=== PATIENT | male | born 1945 | race Caucasian/White ===

== ENCOUNTER 2021-03-15 21:45 | Inpatient (IN) | payer OTHER, SELFPAY ==
[~2021-03-15] VITALS: Ht 177.8 cm; Wt 72.6 kg
[~2021-03-15 21:45] MED LIST: ARIP5TAB8 PO; CLON0.5T PO; LEVO0.155 PO; MIRT-91 PO; OMEP40EC24 PO; SERT100T PO; TRAZ-343 PO
[2021-03-15 22:19] VITALS: BP 150/69
--- NOTE | 2021-03-15 22:19 | NUR ---
PT PATTY ALS. TAKEN TO BED 6
--- NOTE | 2021-03-15 22:20 | NUR ---
75 Y/O MALE BIBA C/O DIFF BREATHING W/ INCREASED EFFORT X2 WKS. PT PRESENTS W/ TACHYCARDIA AND TACHYPNEA. PT STATES HE HAD FEVER, SOB, AND COUGH. PT IS PALE AND ANXIOUS. PT'S LUNGS ARE CLEAR, HR REGULAR; AAOX4 WITH EVEN AND STEADY GAIT; PATIENT STATES NO PAIN AT THIS TIME; PATIENT POSITIONED FOR COMFORT; HOB ELEVATED; BEDRAILS UP X2; BED DOWN. ER MD MADE AWARE OF PT STATUS. HX PER PT: RENAL FAILURE AND KIDNEY TRANSPLANT NKA
[2021-03-15] MEDS ORDERED: DEXAMETHASONE 4 MG/ML VIAL IVP ONE (22:40)
[2021-03-15] MEDS ORDERED: ALBUTEROL SULFATE/IPRATROPIU 3 ML SOL IH ONE (22:40)
--- NOTE | 2021-03-15 22:45 | NUR ---
COVID/ELAINE, FLU, AND COVID-NOVEL SWABBED AND WALKED TO LABS
--- NOTE | 2021-03-15 22:48 | NUR ---
X-Ray at bedside.
[2021-03-15] MEDS ORDERED: cefTRIAXone 1,000 MG VIAL ONE (22:51)
[2021-03-15 22:58] LABS: EOSINOPHILS % (AUTO) 0.1 % (0.0-4.0); HEMATOCRIT 35.1 % (36-52); HEMOGLOBIN 11.9 g/dL (12.0-18.0); LYMPHOCYTES # (AUTO) 0.2 K/uL (2.0-11.5); LYMPHOCYTES % (AUTO) 4.5 % (20.5-51.1); MEAN CORPUSCULAR HEMOGLOBIN 31 pg (27-31); MEAN CORPUSCULAR HGB CONC 34 g/dL (33-37); MEAN CORPUSCULAR VOLUME 91.1 fL (80-94); MONOCYTES # (AUTO) 0.5 K/uL (0.8-1.0); MONOCYTES % (AUTO) 10.6 % (1.7-9.3); NEUTROPHILS # (AUTO) 3.7 K/uL (1.8-7.7); PLATELET COUNT (AUTO) 178 K/uL (140-450); RED BLOOD CELL COUNT(AUTO) 3.86 MIL/uL (4.20-6.10); RED CELL DISTRIBUTION WIDTH 14.4 % (11.6-13.7); WHITE BLOOD COUNT (AUTO) 4.5 K/uL (4.8-10.8)
--- NOTE | 2021-03-15 23:00 | NUR ---
Respiratory Therapist at bedside for respiratory intervention.
--- NOTE | 2021-03-15 23:04 | NUR ---
PT PLACED ON BIPAP PER RT
--- NOTE | 2021-03-15 23:07 | NUR ---
Dr. Arcos examining patient.
[2021-03-15] MEDS ORDERED: ONDANSETRON 4 MG/2 ML VIAL IVP ONE (23:15)
[2021-03-15 23:27] LABS: NEUTROPHILS % (AUTO) 83.8 % (42.2-75.2)
[2021-03-15 23:41] LABS: ALBUMIN 3.5 g/dL (3.4-5.0); ANION GAP 17.2 (8-16); ASPARTATE AMINOTRANSFERASE 38 U/L (15-37); CARBON DIOXIDE 20.1 mmol/L (21-32); CHLORIDE 97 mmol/L (98-107); CREATININE 1.5 mg/dL (0.6-1.3); GLUCOSE 103 mg/dL (74-106); POTASSIUM 4.3 mmol/L (3.5-5.1); SODIUM SERUM 130 mmol/L (136-145); TOTAL BILIRUBIN 0.8 mg/dL (0.0-1.0); UREA NITROGEN, BLOOD 22 mg/dL (7-18)
[2021-03-15 23:52] LABS: C-REACTIVE PROTEIN QUANT 6.2 mg/dL (0.0-0.9)
[2021-03-16] MEDS ORDERED: MIRT-91 PO (00:41)
[2021-03-16] MEDS ORDERED: OMEP20EC11 PO (00:41)
[2021-03-16] MEDS ORDERED: IMO2 PO (00:41)
[2021-03-16] MEDS ORDERED: CHOL100013 PO (00:41)
[2021-03-16] MEDS ORDERED: SERT100T PO (00:41)
[2021-03-16] MEDS ORDERED: TRAZ-343 PO (00:41)
[2021-03-16] MEDS ORDERED: LEVO0.1331 PO (00:41)
[2021-03-16] MEDS ORDERED: ASPI-1856 PO (00:41)
[2021-03-16] MEDS ORDERED: PRED5TAB7 PO (00:41)
[2021-03-16] MEDS ORDERED: TACR1CAP17 PO (00:41)
[2021-03-16] MEDS ORDERED: [UNRECOGNIZED DRUG - CODE] PO (00:50)
[2021-03-16] MEDS ORDERED: CEL250 PO (00:50)
[2021-03-16] MEDS ORDERED: MULT-2253 PO (00:50)
[2021-03-16] MEDS ORDERED: NIAC500T6 PO (00:50)
[2021-03-16] MEDS ORDERED: DOXY-690 PO (00:50)
[2021-03-16] MEDS ORDERED: SILD100T PO (00:50)
[2021-03-16] MEDS ORDERED: PRAZ1CAP5 PO (00:50)
[2021-03-16] MEDS ORDERED: DOCU-299 PO (00:50)
[2021-03-16 01:37] VITALS: BP 141/59
--- NOTE | 2021-03-16 01:42 | NUR ---
Jess lynn in ED - 03/16/21 at 0249 by [email or web address] ER MD AND PSYCH BOTH DO NOT FEEL COMFORTABLE DISCHARTGING THE PATIENT DUE TO A LACK OF SUPPORT SYSTEM. PT WILL REMAIN IN THE ER UNTIL PSYCH CAN COME IN THE MORNING TO REEVALUATE THE PT.
--- NOTE | 2021-03-16 03:36 | NUR ---
RTs AT BEDSIDE TO ADJUST BIPAP SETTINGS TO [facility]
[2021-03-16 03:49] VITALS: BP 139/46
--- NOTE | 2021-03-16 04:12 | NUR ---
DAUGHTER OF PT CALLED FOR UPDATE. ALL QUESTIONS AND CONCERNS WERE ADDRESSED. POC: SGJose A NARANJO (DAUGHTER) CELL- WORK-
[2021-03-16] MEDS ORDERED: AZITHROMYCIN 500 MG in DEXTROSE 5% 250 ML IV SCH (04:40)
[2021-03-16] MEDS ORDERED: NACL 0.9% 500 ML IV ONE (04:40)
[2021-03-16] MEDS ORDERED: AZITHROMYCIN 500 MG INJ VIAL IV ONE (05:12)
--- NOTE | 2021-03-16 05:53 | NUR ---
PT WAS COMPLAINING THAT HIS IV SITE WAS HURTING WHILE INFUSING MEDICATION. A NEW IV SITE WAS ESTABLISHED FURTHER UP HIS RIGHT ARM DUE TO FISTULA ON LEFT ARM. PT IS NO LONGER COMPLAINING OF PAIN.
--- NOTE | 2021-03-16 05:57 | NUR ---
RT AT BEDSIDE EVALUATING PT. PT IS AT 90% OFF BIPAP. PT WILL REMAIN ON BIPAP FOR NOW.
--- NOTE | 2021-03-16 07:25 | NUR ---
REPORT GIVEN TO SERA JOHNSON
[2021-03-16] MEDS ORDERED: ONDANSETRON 4 MG/2 ML VIAL IM/IVP PRN (08:10)
[2021-03-16] MEDS ORDERED: DOCUSATE SODIUM 100 MG GELCAP PO PRN (08:10)
[2021-03-16] MEDS ORDERED: ACETAMINOPHEN 325 MG TAB PO PRN (08:10)
[2021-03-16] MEDS ORDERED: POTASSIUM CHLORIDE 10 MEQ TABER PO PRN (08:10)
[2021-03-16] MEDS ORDERED: guaiFENesin DM 200/20 MG-10 ML 10 ML UDC PO PRN (08:10)
--- NOTE | 2021-03-16 08:10 | NUR ---
RT AT BEDSIDE.
[2021-03-16] MEDS ORDERED: ALBUTEROL SULFATE/IPRATROPIU 3 ML SOL IH PRN (08:15)
[2021-03-16] MEDS: PANTOPRAZOLE 40 MG TABEC PO SCH (09:33)
[2021-03-16] MEDS: ZINC SULF 220 MG CAP PO SCH (09:34)
[2021-03-16] MEDS: ASCORBIC ACID 500 MG TAB PO SCH (09:34)
[2021-03-16 10:35] LABS: PROTHROMBIN TIME 10.5 secs (10.8-13.4)
[2021-03-16 10:52] LABS: CHOL/HDL RATIO 3.2 (1-4.5); FREE T4 (FREE THYROXINE) 1.07 ng/dL (0.76-1.46); MAGNESIUM 1.2 mg/dL (1.8-2.4); PHOSPHORUS 4.1 mg/dL (2.5-4.9); THYROID STIMULATING HORMONE 0.09 uIU/mL (0.34-3.74)
--- NOTE | 2021-03-16 10:54 | NUR ---
PATIENT HAS BEEN SCREENED AND CATEGORIZED MODERATE NUTRITION RISK. PATIENT WILL BE SEEN WITHIN 3-5 DAYS OF ADMISSION. 03/19/21 03/21/[address]
--- NOTE | 2021-03-16 11:35 | NUR ---
800 ML URINE EMPTED.
--- NOTE | 2021-03-16 13:20 | NUR ---
PT HAD 2 LOOSE STOOLS. PT CLANED.
--- NOTE | 2021-03-16 13:53 | NUR ---
RT AT BEDSIDE.
[2021-03-16] MEDS: ALBUTEROL SULFATE/IPRATROPIU 3 ML SOL IH SCH (13:55)
--- NOTE | 2021-03-16 15:13 | NUR ---
MOVED TO ER BED 2
[2021-03-16] MEDS ORDERED: remdesivir COMMUNICATION ORDER 1 EA MISC MC PRN (15:55)
--- NOTE | 2021-03-16 19:14 | NUR ---
received report from Gurmeet JOHNSON for continuation of care.
--- NOTE | 2021-03-16 19:14 | NUR ---
GAVE REPORT OT KENZIE MEJIA.
--- NOTE | 2021-03-16 20:01 | NUR ---
Provided pericare for patient, changed diaper and offered paloma pads. patient tolerated well. 10cc flushable through right fa. no medications running through arm. patient on 5L nc. AAOx4. VSS. No signs of distress noted. Safety measures are in place, placed on the monitors, and will continue to monitor patient.
[2021-03-16] MEDS: HYDROcodone/APAP 7.5/325 MG 1 TAB PO PRN (20:18)
--- NOTE | 2021-03-16 21:41 | NUR ---
spoke with Shirley the daughter about patient condition and updates on patient. Addendum: 03/16/21 at 2146 by LUZ ni underwood #[id number]
--- NOTE | 2021-03-16 21:56 | NUR ---
Provided pericare for patient, changed diaper and offered paloma pads. patient tolerated well. patient on 5L nc. AAOx4. VSS. No signs of distress noted. Safety measures are in place, placed on the monitors, and will continue to monitor patient.
[2021-03-17] MEDS: ALBUTEROL SULFATE/IPRATROPIU 3 ML SOL IH SCH ×4 (01:00→19:50)
--- NOTE | 2021-03-17 02:20 | NUR ---
Patient appears to be resting comfortably in bed- semi fowlers, and eyes closed. Vital Signs within normal limits. Respirations even and unlabored. No signs of distress noted. Safety measures in place, attached to monitor and will continue to monitor patient.
--- NOTE | 2021-03-17 02:45 | NUR ---
Tx NOT GIVEN DUE TO COVID PROTOCOL
--- NOTE | 2021-03-17 06:22 | NUR ---
patient awake and requesting another blanket and urinal. Addendum: 03/17/21 at 0281 by [email or web address] urinal provided for patient
--- NOTE | 2021-03-17 07:16 | NUR ---
repositioned patient to the left side- tolerated well.
[2021-03-17 07:17] LABS: BASOPHILS % (AUTO) 0.2 % (0.0-2.0); EOSINOPHILS % (AUTO) 0.1 % (0.0-4.0); HEMATOCRIT 35.5 % (36-52); LYMPHOCYTES # (AUTO) 0.4 K/uL (2.0-11.5); LYMPHOCYTES % (AUTO) 10.3 % (20.5-51.1); MEAN CORPUSCULAR HEMOGLOBIN 31 pg (27-31); MEAN CORPUSCULAR HGB CONC 34 g/dL (33-37); MEAN CORPUSCULAR VOLUME 90.5 fL (80-94); MONOCYTES # (AUTO) 0.5 K/uL (0.8-1.0); MONOCYTES % (AUTO) 11.8 % (1.7-9.3); NEUTROPHILS # (AUTO) 3.4 K/uL (1.8-7.7); NEUTROPHILS % (AUTO) 77.6 % (42.2-75.2); PLATELET COUNT (AUTO) 148 K/uL (140-450); RED BLOOD CELL COUNT(AUTO) 3.92 MIL/uL (4.20-6.10); RED CELL DISTRIBUTION WIDTH 14.8 % (11.6-13.7); WHITE BLOOD COUNT (AUTO) 4.4 K/uL (4.8-10.8)
--- NOTE | 2021-03-17 07:45 | NUR ---
Patient appears to be resting comfortably in bed. Vital Signs within normal limits. Respirations even and unlabored. A/V shunt with +B/T. IV WNL, SL. All needs met, safety measures in place. Call light in reach. VSS. Able to make all needs known.
[2021-03-17 08:02] LABS: ANION GAP 16.3 (8-16); CARBON DIOXIDE 22.3 mmol/L (21-32); CHLORIDE 106 mmol/L (98-107); CREATININE 1.5 mg/dL (0.6-1.3); GLUCOSE 103 mg/dL (74-106); POTASSIUM 4.6 mmol/L (3.5-5.1); SODIUM SERUM 140 mmol/L (136-145); UREA NITROGEN, BLOOD 31 mg/dL (7-18)
[2021-03-17] MEDS: ASCORBIC ACID 500 MG TAB PO SCH (09:00)
[2021-03-17] MEDS: ZINC SULF 220 MG CAP PO SCH (09:00)
[2021-03-17] MEDS: PANTOPRAZOLE 40 MG TABEC PO SCH (09:00)
[2021-03-17] MEDS ORDERED: AZITHROMYCIN 250 MG TAB PO SCH (09:00)
[2021-03-17 09:07] LABS: T4 (THYROXINE) 7.9 ug/dL (4.5-12.0)
--- NOTE | 2021-03-17 09:21 | NUR ---
Patient will be admitted to care of Dr Paez. Admited to Telemetry. Will go to room 126 A. [facility] list completed. Report to Leif MEJIA. Addendum: 03/17/21 at 1015 by [facility] Cell phone and hearing aid visually endorsed to Leif MEJIA at bedside
[2021-03-17 09:30] VITALS: BP 149/79
[2021-03-17] MEDS: HYDROcodone/APAP 7.5/325 MG 1 TAB PO PRN (11:02)
[2021-03-17 12:00] VITALS: BP 153/83
--- NOTE | 2021-03-17 13:33 | NUR ---
SATURATION 96% ON SUPPLEMENTAL OXYGEN AT 4 LPM VIA NC POST HHN THERAPY TITRATED FIO2 TO 3 LPM POST HHNN THERAPY XIOMARA/RN NOTIFIED
--- NOTE | 2021-03-17 13:43 | NUR ---
TOLERATED INCENTIVE SPIROMETRY (IS) WELL WITHOUT ADVERSE REACTIONS NOTED ENCOURAGED PATIENT TO USE IS EVERY 1-2 HOURS WHILE AWAKE
[2021-03-17] MEDS ORDERED: LOPERAMIDE 2 MG CAP PO PRN (13:55)
[2021-03-17] MEDS: predniSONE 5 MG TAB PO SCH (14:54)
--- NOTE | 2021-03-17 15:50 | NUR ---
DC PLANNIN YRS OLD MALE PATIENT WAS ADMITTED FROM HOME WITH A DX OF ACUTE HYPOXIA RESP FAILURE DUE TO COVID. PATIENT HAS A HX OF ESRD ON HEMODIALYSIS HYPOTHYROIDISM AND BIPOLAR DISORDER. CXR SHOWED BRONCHITIS. RAPID COVID TEST POSITIVE. ON O2 4L/NC SATING 96%. CONSULTED WITH CARDIO, NEPHRO AND PULMO. DC PLAN TO GO HOME WHEN STABLE. CM TO FOLLOW Addendum: 03/19/21 at 1412 by Ariana Arzate RN DC PLANNING: PATIENT HAS AN ORDER FOR HOME O2 FAXED TO [facility]. DR MONDRAGON SIGNED THE FORM. HOME O2 WILL BE DELIVERED TO THE HOSPITAL BETWEEN 4-7 PM
[2021-03-17 16:00] VITALS: BP 146/63
[2021-03-17] MEDS ORDERED: TACROLIMUS 1 MG PO SCH (17:00)
[2021-03-17] MEDS: MYCOPHENOLATE 250 MG CAP PO SCH (17:38)
[2021-03-17] MEDS: TACROLIMUS 1 MG CAP PO SCH ×2 (17:38→21:29)
[2021-03-17] MEDS: clonazePAM 0.5 MG TAB PO SCH (17:39)
--- NOTE | 2021-03-17 19:25 | NUR ---
RECEIVED PATIENT REPORT FROM AM SHIFT NURSE. PATIENT IN BED RESTING COMFORTABLY AT THIS TIME. HOB IN SEMI-FOWLERS POSITION. ON 3L VIA N/C. NOT IN DISTRESS. NO COMPLAINT OF PAIN AT THIS TIME. ALL SAFETY MEASURES IN PLACE. CALL LIGHT WITHIN REACH. WILL CONTINUE WITH THE CURRENT PLAN OF CARE.
--- NOTE | 2021-03-17 19:26 | NUR ---
ENDORSED PT TO GANG TAILER NURSE FOR CONTINUITY OF CARE.
[2021-03-17 20:00] VITALS: BP 147/62
[2021-03-17] MEDS: PRAZOSIN 1 MG CAP PO SCH (21:00)
--- NOTE | 2021-03-17 21:05 | NUR ---
ADMINISTERED SCHEDULE MEDICATIONS PER MD ORDER. TOLERATED WELL. NO ASE NOTED. ALL SAFETY MEASURES IN PLACE. CALL LIGHT WITHIN REACH. WILL CONTINUE TO MONITOR.
[2021-03-17] MEDS: ARIPiprazole 10 MG TAB PO SCH (21:27)
[2021-03-17] MEDS: traZODone 50 MG TAB PO SCH (21:28)
[2021-03-17] MEDS: MIRTAZAPINE 15 MG TAB PO SCH (21:30)
--- NOTE | 2021-03-17 23:07 | NUR ---
CHECKED ON PATIENT. PATIENT ASLEEP WITH HOB SLIGHTLY ELEVATED. BREATHING EVEN AND UNLABORED WITH NO SOB NOTED. ALL SAFETY MEASURES IN PLACE. CALL LIGHT WITHIN REACH. WILL CONTINUE TO MONITOR.
[2021-03-18] VITALS: BP 141/66
[2021-03-18] MEDS: ZOLPIDEM 5 MG TAB PO PRN ×2 (00:58→22:03)
[2021-03-18] MEDS: ALBUTEROL SULFATE/IPRATROPIU 3 ML SOL IH SCH ×4 (01:00→21:30)
--- NOTE | 2021-03-18 01:02 | NUR ---
CHECKED ON PATIENT. PATIENT REQUESTING FOR SLEEPING MEDICATION. MEDICATION PROVIDED. CALL LIGHT WITHIN REACH. WILL CONTINUE TO MONITOR.
--- NOTE | 2021-03-18 01:26 | NUR ---
PATIENT IS ASLEEP. NO HHNTX GIVEN. PATIENT HAS CLEAR BS
--- NOTE | 2021-03-18 03:15 | NUR ---
CHECKED ON PATIENT. SLEEPING WELL WITH VISIBLE CHEST RISING AND FALLING. CALL LIGHT WITHIN REACH. WILL CONTINUE TO MONITOR.
[2021-03-18 04:00] VITALS: BP 137/60
--- NOTE | 2021-03-18 05:04 | NUR ---
ROUNDED ON PATIENT. SLEEPING WELL WITH VISIBLE CHEST RISING AND FALLING. CALL LIGHT WITHIN REACH. WILL CONTINUE TO MONITOR.
[2021-03-18] MEDS ORDERED: LEVOTHYROXINE 0.025 MG TAB ONE (05:43)
[2021-03-18] MEDS ORDERED: LEVOTHYROXINE 0.112 MG TAB ONE (05:43)
[2021-03-18] MEDS ORDERED: NON-FORMULARY ITEM (Levothyroxine Sodium* (Synthroid*) 0.137 MG) PO SCH (06:30)
[2021-03-18] MEDS: LEVOTHYROXINE 0.025 MG, LEVOTHYROXINE 0.112 MG PO SCH ×2 (06:42)
[2021-03-18 06:54] LABS: BASOPHILS % (AUTO) 0.1 % (0.0-2.0); HEMATOCRIT 30.7 % (36-52); HEMOGLOBIN 10.5 g/dL (12.0-18.0); LYMPHOCYTES # (AUTO) 0.2 K/uL (2.0-11.5); MEAN CORPUSCULAR HEMOGLOBIN 31 pg (27-31); MEAN CORPUSCULAR HGB CONC 34 g/dL (33-37); MEAN CORPUSCULAR VOLUME 90.4 fL (80-94); MONOCYTES # (AUTO) 0.5 K/uL (0.8-1.0); MONOCYTES % (AUTO) 8.7 % (1.7-9.3); NEUTROPHILS % (AUTO) 87.2 % (42.2-75.2); PLATELET COUNT (AUTO) 148 K/uL (140-450); RED CELL DISTRIBUTION WIDTH 14.7 % (11.6-13.7); WHITE BLOOD COUNT (AUTO) 5.7 K/uL (4.8-10.8)
[2021-03-18 07:14] LABS: ANION GAP 15.2 (8-16); CARBON DIOXIDE 20.8 mmol/L (21-32); CHLORIDE 102 mmol/L (98-107); CREATININE 1.9 mg/dL (0.6-1.3); GLUCOSE 115 mg/dL (74-106); SODIUM SERUM 134 mmol/L (136-145); UREA NITROGEN, BLOOD 44 mg/dL (7-18)
--- NOTE | 2021-03-18 07:20 | NUR ---
ENDORSED PATIENT REPORT TO AM SHIFT NURSE FOR CONTINUITY OF CARE. PATIENT IS STABLE.
--- NOTE | 2021-03-18 07:21 | NUR ---
RECEIVED BEDSIDE REPORT FROM STENCIL MACHINE OPERATOR PT IS AWAKE, SATING 93% ON 3L OF O2 NC. NO S/S OF DISTRESS. BREATHING IS EVEN AND UNLABORED. IV SL AND INTACT. ALL SAFETY MEASURES IN PLACE. CALL LIGHT WITHIN REACH. SKIN INTACT. PT IS STABLE.
[2021-03-18 08:00] VITALS: BP 115/65
[2021-03-18] MEDS: ECOTRIN 81 MG TABEC PO SCH (09:43)
[2021-03-18] MEDS: PANTOPRAZOLE 40 MG TABEC PO SCH (09:44)
[2021-03-18] MEDS: TACROLIMUS 1 MG CAP PO SCH ×4 (09:44→20:18)
[2021-03-18] MEDS: ASCORBIC ACID 500 MG TAB PO SCH (09:44)
[2021-03-18] MEDS: SERTRALINE 50 MG TAB PO SCH (09:44)
[2021-03-18] MEDS: predniSONE 5 MG TAB PO SCH (09:44)
[2021-03-18] MEDS: MYCOPHENOLATE 250 MG CAP PO SCH ×3 (09:44→17:11)
[2021-03-18] MEDS: ZINC SULF 220 MG CAP PO SCH (09:44)
[2021-03-18] MEDS: clonazePAM 0.5 MG TAB PO SCH ×3 (09:45→17:14)
--- NOTE | 2021-03-18 10:00 | NUR ---
PT IS AWAKE, NO S/S OF DISTRESS. SATING 94% ON 3L OF 02 NC. BREATHING IS EVEN AND UNLABORED. IVF IV SL. ALL SAFETY MEASURES IN PLACE. CALL LIGHT WITHIN REACH. SKIN INTACT. PT IS STABLE.
[2021-03-18] MEDS: HYDROcodone/APAP 7.5/325 MG 1 TAB PO PRN (11:09)
[2021-03-18 12:00] VITALS: BP 94/54
--- NOTE | 2021-03-18 12:00 | NUR ---
PAIN MED GIVEN AROUND 1109, REASSESSED AND PAIN WENT FROM 6 TO 2. LELE MED EFFECTIVE.
--- NOTE | 2021-03-18 14:00 | NUR ---
PT RESTING, NO S/S OF DISTRESS. NC AT 3L. BREATHING IS EVEN AND UNLABORED. IV SL. ALL SAFETY MEASURES IN PLACE. CALL LIGHT WITHIN REACH. SKIN INTACT. PT IS STABLE.
--- NOTE | 2021-03-18 15:42 | NUR ---
HHN THERAPY NOT GIVEN DUE TO PHYSICAL THERAPY AND NAUSEA WITH EMESIS DURING THERAPY
[2021-03-18 16:00] VITALS: BP 112/53
--- NOTE | 2021-03-18 17:00 | NUR ---
PT BREATHING IS EVEN AND UNLABORED ON 3L OF O2 NC. PT IS STABLE.
--- NOTE | 2021-03-18 19:10 | NUR ---
ENDORSED TO STATUS CONTROLLER NURSE FOR CONTINUITY OF CARE. POC DISCUSSED.
--- NOTE | 2021-03-18 19:15 | NUR ---
RECEIVED BEDSIDE REPORT FROM DAY SHIFT PT IS AWAKE,ALERT AND ORIENTED. SATING 93% ON 3L OF O2 VIA NC. NO S/S OF DISTRESS. BREATHING IS EVEN AND UNLABORED. IV 18G ON RFA SL AND 20G ON RAC INTACT. ALL SAFETY MEASURES IN PLACE. CALL LIGHT WITHIN REACH. SKIN INTACT. PT IS STABLE.
[2021-03-18 20:00] VITALS: BP 120/67
[2021-03-18] MEDS: ARIPiprazole 10 MG TAB PO SCH (20:16)
[2021-03-18] MEDS: traZODone 50 MG TAB PO SCH (20:17)
[2021-03-18] MEDS: MIRTAZAPINE 15 MG TAB PO SCH (20:22)
[2021-03-18] MEDS: PRAZOSIN 1 MG CAP PO SCH (21:00)
--- NOTE | 2021-03-18 21:00 | NUR ---
DUE MEDICATIONS GIVEN. PT TOLERATED WELL. NO DISTRESS NOTED. ALL PRECAUTIONS IN PLACE. WILL CONTINUE TO MONITOR.
--- NOTE | 2021-03-18 21:30 | NUR ---
PT PRESENTS LAYING IN BED ALERT AND WAKE WITH NO SIGNS OF RESPIRATORY DISTRESS. CURRENTLY ON 3LPM NC SATING 90% BS CLEAR/ DIMINISHED BILATERALLY. TOLERATED HHN TX WELL. WILL CONTINUE TO MONITOR.
--- NOTE | 2021-03-18 22:15 | NUR ---
PT WANTED SLEEP MEDICATION. PRN SLEEP MED GIVEN. PT TOLERATED WELL. NO DISTRESS NOTED. CALL LIGHT WITHIN REACH. WILL CONTINUE TO MONITOR.
--- NOTE | 2021-03-18 23:30 | NUR ---
PT ASLEEP. BREATHING EQUAL AND UNLABORED. ALL PRECAUTIONS IN PLACE. WILL CONTINUE TO MONITOR.
[2021-03-18] MEDS: DOCUSATE SODIUM 100 MG GELCAP PO SCH (23:41)
[2021-03-19] VITALS: BP 145/62
--- NOTE | 2021-03-19 01:51 | NUR ---
PT ASLEEP. BREATHING EQUAL AND UNLABORED. ALL PRECAUTIONS IN PLACE. CALL LIGHT WITHIN REACH.WILL CONTINUE TO MONITOR.
[2021-03-19] MEDS ORDERED: HYDRAGUARD CREAM TP SCH (02:00)
[2021-03-19] MEDS ORDERED: HYDRAGUARD CREAM TP PRN (02:30)
[2021-03-19 04:00] VITALS: BP 158/51
[2021-03-19] MEDS ORDERED: LEVOTHYROXINE 0.025 MG TAB ONE (05:55)
--- NOTE | 2021-03-19 06:00 | NUR ---
SCHEDULED MEDICATION GIVEN. PT TOLERATED WELL. NO DISTRESS NOTED. CALL LIGHT WITHIN REACH. WILL CONTINUE TO MONITOR.
[2021-03-19] MEDS: LEVOTHYROXINE 0.025 MG, LEVOTHYROXINE 0.112 MG PO SCH ×2 (06:10)
--- NOTE | 2021-03-19 06:23 | NUR ---
PT IS STABLE.NO ACUTE EVENTS THROUGHOUT THE NIGHT. ALL NEEDS ATTENDED. NO S/SX OF DISTRESS. ALL PRECAUTIONS IN PLACE.CALL LIGHT WITHIN REACH. WILL ENDORSE TO AM SHIFT NURSE.
--- NOTE | 2021-03-19 07:27 | NUR ---
ENDORSED PT TO AM SHIFT NURSE FOR CONTINUITY OF CARE. PT IS STABLE.
--- NOTE | 2021-03-19 07:28 | NUR ---
RECEIVED BEDSIDE REPORT FROM RAILCAR BRAKE OPERATOR PT IS AWAKE, SATING 90% ON 3L OF O2 NC. NO S/S OF DISTRESS. BREATHING IS EVEN AND UNLABORED. IV SL AND INTACT. ALL SAFETY MEASURES IN PLACE. CALL LIGHT WITHIN REACH. SKIN INTACT. PT IS STABLE.
--- NOTE | 2021-03-19 07:34 | NUR ---
PHYSICAL THERAPY CO-SIGN The Physical Therapy Progress Notes documented by Nuclear Weapons Custodian have been reviewed. Reviewed/Co-Signed by: Eva Gale Documentation Done by: CORINNE CANNON PTA Addendum: 03/19/21 at 0734 by Eva Gale PT Amended: Links added.
[2021-03-19 07:39] LABS: ANION GAP 15.1 (8-16); CARBON DIOXIDE 20.5 mmol/L (21-32); CHLORIDE 103 mmol/L (98-107); CREATININE 1.7 mg/dL (0.6-1.3); GLUCOSE 114 mg/dL (74-106); POTASSIUM 4.6 mmol/L (3.5-5.1); SODIUM SERUM 134 mmol/L (136-145); UREA NITROGEN, BLOOD 46 mg/dL (7-18)
[2021-03-19 08:00] VITALS: BP 135/74
[2021-03-19] MEDS: ALBUTEROL SULFATE/IPRATROPIU 3 ML SOL IH SCH ×2 (08:21→14:57)
[2021-03-19] MEDS: ECOTRIN 81 MG TABEC PO SCH (09:06)
[2021-03-19] MEDS: SERTRALINE 50 MG TAB PO SCH (09:07)
[2021-03-19] MEDS: PANTOPRAZOLE 40 MG TABEC PO SCH (09:07)
[2021-03-19] MEDS: MYCOPHENOLATE 250 MG CAP PO SCH ×2 (09:07→12:02)
[2021-03-19] MEDS: ASCORBIC ACID 500 MG TAB PO SCH (09:07)
[2021-03-19] MEDS: TACROLIMUS 1 MG CAP PO SCH ×2 (09:07→12:02)
[2021-03-19] MEDS: ZINC SULF 220 MG CAP PO SCH (09:07)
[2021-03-19] MEDS: DOCUSATE SODIUM 100 MG GELCAP PO SCH (09:07)
[2021-03-19] MEDS: clonazePAM 0.5 MG TAB PO SCH ×2 (09:09→12:04)
[2021-03-19 09:22] LABS: BASOPHILS % (AUTO) 0.1 % (0.0-2.0); HEMATOCRIT 32.1 % (36-52); HEMOGLOBIN 10.8 g/dL (12.0-18.0); LYMPHOCYTES # (AUTO) 0.1 K/uL (2.0-11.5); LYMPHOCYTES % (AUTO) 3.3 % (20.5-51.1); MEAN CORPUSCULAR HEMOGLOBIN 31 pg (27-31); MEAN CORPUSCULAR HGB CONC 34 g/dL (33-37); MEAN CORPUSCULAR VOLUME 90.8 fL (80-94); MONOCYTES # (AUTO) 0.4 K/uL (0.8-1.0); MONOCYTES % (AUTO) 8.1 % (1.7-9.3); NEUTROPHILS % (AUTO) 88.5 % (42.2-75.2); PLATELET COUNT (AUTO) 153 K/uL (140-450); RED BLOOD CELL COUNT(AUTO) 3.53 MIL/uL (4.20-6.10); RED CELL DISTRIBUTION WIDTH 14.4 % (11.6-13.7); WHITE BLOOD COUNT (AUTO) 4.6 K/uL (4.8-10.8)
[2021-03-19] MEDS: HYDROcodone/APAP 7.5/325 MG 1 TAB PO PRN (10:04)
--- NOTE | 2021-03-19 10:04 | NUR ---
PAIN MED GIVEN PER MD ORDER PT STATED 6/10 PAIN IN LOWER BACK.
--- NOTE | 2021-03-19 11:04 | NUR ---
REASSESSED PAIN AND PT STATES HE IS STILL IN SOME PAIN, BUT THE MED IMPROVED IT.
[2021-03-19] MEDS ORDERED: MAGNESIUM OXIDE 400 MG TAB PO SCH (11:30)
[2021-03-19 12:00] VITALS: BP 138/69
--- NOTE | 2021-03-19 13:00 | NUR ---
PT WAS GIVEN MAG OX FOR COVERAGE OF MG 1.5 PER MD ORDER. PT IS AWAKE, ON 3L OF O2 NC. NO S/S OF DISTRESS. BREATHING IS EVEN AND UNLABORED. IV SL AND INTACT. ALL SAFETY MEASURES IN PLACE. CALL LIGHT WITHIN REACH. SKIN INTACT. PT IS STABLE.
[2021-03-19] MEDS ORDERED: DEXA6TAB1 PO (15:31)
[2021-03-19] MEDS ORDERED: VITC500 PO (15:31)
[2021-03-19] MEDS ORDERED: ZINC220C29 PO (15:31)
[2021-03-19 16:58] VITALS: BP 138/69
--- NOTE | 2021-03-19 18:30 | NUR ---
PT IS STABLE. PT SENT HOME WITH FAMILY BY CAR. PT HAS ALL BELONGINGS WITH HIM. FAMILY GRATEFUL FOR CARE.DC TO HOME WITH O2 AT 3L.
== END 2021-03-19 19:00 | disposition home health service (06) | DRG 871 ==
LOC: MED 21:45 → MTU 03-16 00:35 → MMU 03-17 04:10
PROVIDERS: ADMIT Family Medicine; ATTEND Family Medicine
PROC: 5A09357 Assistance with Respiratory Ventilation, Less than 24 Consecutive Hours, Continuous Positive Airway Pressure (ICD-10-PCS; principal; 2021-03-16)
DX: A41.9 Sepsis, unspecified organism (principal); U07.1 COVID-19; G93.41 Metabolic encephalopathy; J12.82 Pneumonia due to coronavirus disease 2019; N17.0 Acute kidney failure with tubular necrosis; N18.6 End stage renal disease; J96.01 Acute respiratory failure with hypoxia; E87.1 Hypo-osmolality and hyponatremia; D68.59 Other primary thrombophilia; Z94.0 Kidney transplant status; D63.8 Anemia in other chronic diseases classified elsewhere; Z96.659 Presence of unspecified artificial knee joint; F29 Unspecified psychosis not due to a substance or known physiological condition; F31.9 Bipolar disorder, unspecified; E03.9 Hypothyroidism, unspecified; Z99.2 Dependence on renal dialysis
CPT/HCPCS: 36415; 71045; 80048; 80053; 82150; 83036; 83605; 83615; 83690; 83735; 83880; 84100; 84436; 84439; 84443; 84479; 84484; 85025; 85379; 85610; 85730; 86140; 87040; 87081; 92526; 93005; 94640; 94660; 96365; 96367; 96375; 97110; 97112; 97116; 97163-GP; 97530; 99291; J0456; J0696; J1100; J1644; J2405; J7060; J7507; J7512; J7517; Q0092